=== PATIENT | female | born 1960 | race Caucasian/White ===

== ENCOUNTER → 2016-11-21 | Outpatient (CLI) | payer BC ==
[2016-11-21 10:25] LABS: CHLORIDE,CL 108 mmol/L (98-110); SODIUM,NA 143 mmol/L (136-146)
== END ==
LOC: MW.CHIM 09:26
PROVIDERS: ATTEND Internal Medicine
DX: R53.83 Other fatigue (principal); Z98.84 Bariatric surgery status; R01.1 Cardiac murmur, unspecified; E53.8 Deficiency of other specified B group vitamins; R79.0 Abnormal level of blood mineral
CPT/HCPCS: 36415; 80053; 80061; 82607; 82746; 83036; 84439; 84443; 85025; 85652; 86140

== ENCOUNTER → 2016-12-06 | Outpatient (CLI) | payer BC ==
--- NOTE | 2016-12-06 17:14 | CR ---
EXAMINATION: Lumbar spine HISTORY: Pain COMPARISON: None TECHNIQUE: AP and lateral views of the lumbar spine FINDINGS: There is a trace anterolisthesis of L3 on L4. Otherwise the lumbar spinal alignment is nor mal. The vertebral body heights appear well maintained. Bone mineralization is normal. Marginal oste ophytes are present. The SI joints are symmetric. Disc space narrowing is noted at L4-L5 and L5-S1. IMPRESSION: Mild to moderate degenerative changes without acute findings.
== END ==
LOC: MW.DI 12:00
PROVIDERS: ATTEND Internal Medicine
DX: M54.9 Dorsalgia, unspecified (principal)
CPT/HCPCS: 72100; 72100-26

== ENCOUNTER → 2016-12-24 | Outpatient (CLI) | payer BC | END | disposition home or self-care (01) | LOC: MW.CHOBGYN 15:46 | PROVIDERS: ATTEND Obstetrics & Gynecology | DX: R32 Unspecified urinary incontinence (principal) | CPT/HCPCS: 81001; 87086 ==